=== PATIENT | female | born 1970 | race Caucasian/White ===

== ENCOUNTER 2016-10-02 19:10 | Emergency (ER) | payer MEDICAID ==
[~2016-10-02] VITALS: Ht 160 cm; Wt 80.7 kg
[~2016-10-02 19:10] MED LIST: CIPRO500 MG PO; FLO4 PO; NORCO1 TA2 PO
[2016-10-02 20:55] LABS: BASOPHIL % 0.4 % (0-2); PLATELET COUNT 267 x10^3mcL (130-400); RED CELL DISTRIBUTION WIDTH 13.3 % (11.5-14.5)
[2016-10-02 20:59] LABS: CALCIUM 7.9 mg/dL (8.5-10.1); CARBON DIOXIDE 28.1 mmol/L (21-32); CHLORIDE SERUM 109 mmol/L (98-107); CREATININE SERUM 0.6 mg/dL (0.6-1.0); GFR1 > 60 mL/min; GLUCOSE SERUM 90 mg/dL (74-106); SODIUM SERUM 140 mmol/L (136-145)
[2016-10-02 21:03] LABS: ALKALINE PHOSPHATASE 98 U/L (46-116); ALT/SGPT 64 U/L (14-59); AMYLASE 82 U/L (25-115); AST/SGOT 87 U/L (15-37); BILIRUBIN TOTAL 0.4 mg/dL (0.20-1.00); LIPASE 175 IU/L (73-393); TOTAL PROTEIN, SERUM 6.9 g/dL (6.4-8.2)
[2016-10-02 21:04] LABS: ALBUMIN 3.3 g/dL (3.4-5.0)
[2016-10-02 22:51] VITALS: BP 129/71
== END 2016-10-02 22:51 | disposition home or self-care (01) ==
LOC: ED 19:10
PROVIDERS: Emergency Medicine
DX: R10.13 Epigastric pain (principal); R07.9 Chest pain, unspecified; R19.7 Diarrhea, unspecified; Z90.49 Acquired absence of other specified parts of digestive tract
CPT/HCPCS: 83880; J2405; J3010; J7030; Q0092

== ENCOUNTER 2018-01-20 15:33 | Emergency (ER) | payer MEDICAID ==
[~2018-01-20] VITALS: Ht 167.6 cm; Wt 82.6 kg
[2018-01-20 15:49] VITALS: Ht 167.6 cm; Wt 82.6 kg
[2018-01-20 16:47] LABS: BASOPHIL % 0.6 % (0-2); PLATELET COUNT 358 x10^3mcL (130-400); RED CELL DISTRIBUTION WIDTH 17.4 % (11.5-14.5)
[2018-01-20 16:58] LABS: CALCIUM 8.9 mg/dL (8.5-10.1); CARBON DIOXIDE 26.2 mmol/L (21-32); CHLORIDE SERUM 103 mmol/L (98-107); CREATININE SERUM 0.7 mg/dL (0.6-1.0); GFR1 > 60 mL/min; GLUCOSE SERUM 96 mg/dL (74-106); POTASSIUM SERUM 3.5 mmol/L (3.5-5.1); SODIUM SERUM 139 mmol/L (136-145)
[2018-01-20 17:02] LABS: ALBUMIN 3.6 g/dL (3.4-5.0); ALKALINE PHOSPHATASE 83 U/L (46-116); ALT/SGPT 34 U/L (14-59); AST/SGOT 32 U/L (15-37); BILIRUBIN TOTAL 0.2 mg/dL (0.20-1.00); TOTAL PROTEIN, SERUM 7.6 g/dL (6.4-8.2)
[2018-01-20 18:03] VITALS: BP 132/80
== END 2018-01-20 18:03 | disposition home or self-care (01) ==
LOC: ED 15:33
PROVIDERS: Emergency Medicine
DX: S50.12XA Contusion of left forearm, initial encounter (principal); X58.XXXA Exposure to other specified factors, initial encounter; Y93.89 Activity, other specified; Y92.89 Other specified places as the place of occurrence of the external cause; Y99.8 Other external cause status
CPT/HCPCS: J1885; Q0092